=== PATIENT | female | born 1980 | race Caucasian/White ===

== ENCOUNTER 2020-03-21 14:21 | Inpatient (IN) | payer BC ==
[2020-03-21] VITALS (7 sets, daily range): BP systolic 127–156; BP diastolic 72–87
[~2020-03-21] VITALS: Ht 180.3 cm; Wt 127.6 kg
[~2020-03-21 14:21] MED LIST: LEVO50TA5 PO; LISI10TA2 PO; ROPI0.5T PO
[2020-03-21] MEDS ORDERED: SUCCINYLCHOLINE 200 MG/10 ML VIAL. ONE (14:34)
[2020-03-21] MEDS ORDERED: DEXAMETHASONE SOD PHOS 4 MG/ML VIAL ONE (14:34)
[2020-03-21] MEDS ORDERED: PROPOFOL 10 MG/ML (20ML) VIAL. IV ONE (14:34)
[2020-03-21] MEDS ORDERED: LIDOCAINE 2% PF 5 ML VIAL. ONE (14:34)
[2020-03-21] MEDS ORDERED: ONDANSETRON PF 4 MG/2 ML VIAL. ONE (14:34)
[2020-03-21] MEDS ORDERED: fentaNYL PF VIAL 100 MCG/2 ML VIAL ONE ×2 (14:35→15:38)
[2020-03-21] MEDS ORDERED: MIDAZOLAM HCL/PF 2 MG/2 ML VIAL. ONE (14:35)
[2020-03-21] MEDS ORDERED: ROCURONIUM 50 MG/5 ML VIAL. ONE (14:35)
[2020-03-21] MEDS ORDERED: BUPIVACAINE-EPI 0.5%-1:200000 MPF 30 ML VIAL. INJ ONE (14:45)
[2020-03-21] MEDS ORDERED: cefTRIAXone IV Push 1 GM VIAL. IVP ONE ×2 (15:11→17:30)
[2020-03-21] MEDS ORDERED: cloNIDine HCL 0.1 MG TABLET PO PRN (15:15)
[2020-03-21] MEDS ORDERED: ACETAMINOPHEN 650 MG SUPP.RECT. PR PRN (15:15)
[2020-03-21] MEDS ORDERED: guaiFENesin ORAL 200 MG/10 ML LIQUID. PO PRN (15:15)
[2020-03-21] MEDS ORDERED: ONDANSETRON PF 4 MG/2 ML VIAL. IV PRN (15:15)
[2020-03-21] MEDS ORDERED: ACETAMINOPHEN 325 MG TABLET. PO PRN (15:15)
[2020-03-21] MEDS: IV NORMAL SALINE 1000ML BAG 1,000 ML IV SCH (15:15)
[2020-03-21] MEDS ORDERED: ZOLPIDEM 5 MG TABLET. PO PRN (15:15)
[2020-03-21] MEDS ORDERED: ALBUTEROL SULFATE 2.5 MG/3 ML NEBU. NEB PRN (15:15)
[2020-03-21] MEDS ORDERED: DOCUSATE SODIUM 100 MG CAPSULE. PO PRN (15:15)
[2020-03-21] MEDS ORDERED: diphenhydrAMINE 50 MG/ML VIAL IVP PRN (15:15)
[2020-03-21] MEDS ORDERED: MORPHINE SULFATE 2 MG/ML VIAL. IV PRN ×2 (15:15→16:15)
--- NOTE | 2020-03-21 15:21 | PDOC2 ---
CONSULT Date of Consult Date of Consult DATE: 03/21/20 TIME: 15:17 Reason for Consult Reason for Consult: Appendicitis Referring Physician Referring Physician: Dr. Rogers Identification/Chief Complaint Chief Complaint RLQ abd pain Source Source: Chart review, Patient History of Present Illness Reason for Visit: 39 yo F with c/o RLQ abd pain. Awoke her from sleep at 0500 this AM. No previous episodes. Past Medical History Cardiovascular: HTN Pulmonary: No pertinent hx GI: No pertinent hx Heme/Onc: No pertinent hx Hepatobiliary: Cholelithiasis Past Surgical History Past Surgical History: Cholecystectomy, Hysterectomy, Other (breast augme ntation, wrist surgery) Family History Family History: No Significant Social History <1 pack per day ALCOHOL: rare Drugs: None Current Medications Current Medications Current Medications Propofol (Diprivan) 200 mg STK-MED ONCE IV ; Start 03/21/20 at 14:34; Stop 03/21/20 at 14:34; Status DC Lidocaine HCl (Lidocaine Pf 2% Vial) 5 ml STK-MED ONCE .ROUTE ; Start 03/21/20 at 14:34; Stop 03/21/20 at 14:34; Status DC Dexamethasone Sodium Phosphate (Decadron) 4 mg STK-MED ONCE .ROUTE ; Start 03/21/20 at 14:34; Stop 03/21/20 at 14:34; Status DC Ondansetron HCl (Zofran) 4 mg STK-MED ONCE .ROUTE ; Start 03/21/20 at 14:34; Stop 03/21/20 at 14:34; Status DC Succinylcholine Chloride (Anectine) 200 mg STK-MED ONCE .ROUTE ; Start 03/21/20 at 14:34; Stop 03/21/20 at 14:34; Status DC Rocuronium [place] (Zemuron) 50 mg STK-MED ONCE .ROUTE ; Start 03/21/20 at 1 4:35; Stop 03/21/20 at 14:35; Status DC Midazolam HCl (Versed) 2 mg STK-MED ONCE .ROUTE ; Start 03/21/20 at 14:35; Stop 03/21/20 at 14:36; Status DC Fentanyl Citrate (Fentanyl 2ml Vial) 100 mcg STK-MED ONCE .ROUTE ; Start 03/21/20 at 14:35; Stop 03/21/20 at 14:36; Status DC Bupivacaine HCl/ Epinephrine Bitart (Sensorcain-Epi 0.5%-1:495368 Mpf) 30 ml 1X ONCE INJ ; Start 03/21/20 at 14:45; Stop 03/21/20 at 14:46; Status DC Ceftriaxone Sodium (Rocephin) 1 gm STK-MED ONCE IVP ; Start 03/21/20 at 15:11; Stop 03/21/20 at 15:12; Status DC Morphine Sulfate (Morphine Sulfate) 2 mg PRN Q2HR PRN IV PAIN; Start 03/21/20 at 15:15 Sodium Chloride 1,000 ml @ 100 mls/hr Q10H IV ; Start 03/21/20 at 15:15; Status UNV Ondansetron HCl (Zofran) 4 mg PRN Q4HRS PRN IV NAUSEA/VOMITING; Start 03/21/20 at 15:15; Status UNV Zolpidem Tartrate (Ambien) 5 mg PRN QHS PRN PO INSOMNIA; Start 03/21/20 at 15:15; Status UNV Acetaminophen (Tylenol) 650 mg PRN Q4HRS PRN PO TEMP OVER 100.4F OR MILD PAIN; Start 03/21/20 at 15:15; Status UNV Acetaminophen (Tylenol Supp) 650 mg PRN Q4HRS PRN GA TEMP OVER 100.4F OR MILD PAIN; Start 03/21/20 at 15:15; Status UNV Clonidine HCl (Catapres) 0.1 mg PRN Q6HRS PRN PO SBP>160 OR DBP>90; Start 03/21/20 at 15:15; Status UNV Diphenhydramine HCl (Benadryl) 25 mg PRN Q4HRS PRN IVP ITCHING; Start 03/21/20 at 15:15; Status UNV Docusate Sodium (Colace) 100 mg PRN BID PRN PO HARD STOOLS; Start 03/21/20 at 15:15; Status UNV Albuterol Sulfate (Ventolin Neb Soln) 2.5 mg PRN Q4HRS PRN NEB SHORTNESS OF BREATH; Start 03/21/20 at 15:15; Status UNV Guaifenesin (Robitussin) 200 mg PRN Q4HRS PRN PO COUGH; Start 03/21/20 at 15:15; Status UNV Lorazepam (Ativan Inj) 1 mg PRN Q4HRS PRN IV ANXIETY / AGITATION; Start 03/21/20 at 15:15; Status UNV Levothyroxine Sodium (Synthroid) 50 mcg DAILY PO ; Start 03/22/20 at 09:00; Status UNV Lisinopril (Prinivil) 10 mg DAILY PO ; Start 03/22/20 at 09:00; Status UNV Non-Formulary Medication (Ropinirole Hcl (Requip)) 1 tab PRN QHS PO ; Start 03/21/20 at 15:15; Status UNV Active Scripts Active Reported Lisinopril 10 Mg Tablet 1 Tab PO DAILY Levothyroxine Sodium 50 Mcg Tablet 1 Tab PO DAILY Requip (Ropinirole Hcl) 0.5 Mg Tablet 1 Tab PO PRN QHS Allergies Allergies: Coded Allergies: Penicillins (Verified Allergy, Severe, Anaphylaxis, 03/31/14) she stops breathing ROS Gastrointestinal: Yes Abdominal Pain Physical Exam General: Alert, Oriented X3, Cooperative, moderate distress HEENT: Atraumatic Lungs: Normal air movement Abdomen: Soft, Other (TTP RLQ, obese) Extremities: No clubbing, No cyanosis Skin: No rashes, No breakdown Neuro: Normal speech, Sensation intact Psych/Mental Status: Mental status NL, Mood NL Vitals VITALS Vital Signs Date Time Temp Pulse Resp B/P (MAP) Pulse Ox O2 Delivery O2 Flow Rate FiO2 03/21/20 14:20 98.5 70 20 156/72 (100) 99 Room Air 98.5 Labs Labs WBC 17 at [facility] Images CT c/w appendicitis Assessment/Plan Assessment/Plan Appendicitis TO OR for laparoscopic versus open appendectomy. R/R/B/A d/w pt. Risks, including, but not limited to: bleeding, infection, damage to surrounding structures, risk of anesthesia, risk of open. She appears to understand, her questions are answered and she elects to proceed. Thanks for consult! HECTOR SOLIS MD Mar 21, 2020 15:21
[2020-03-21] MEDS ORDERED: rOPINIRole 0.25 MG TABLET. PO PRN (15:30)
[2020-03-21] MEDS ORDERED: FAMOTIDINE 20 MG/2 ML VIAL ONE (15:38)
[2020-03-21] MEDS ORDERED: GLYCOPYRROLATE 1 MG/5 ML VIAL. ONE (15:44)
[2020-03-21] MEDS ORDERED: NEOSTIGMINE METHYLSULFATE 5 MG/5 ML SYRINGE. ONE (15:44)
[2020-03-21] MEDS ORDERED: SEVOFLURANE 31 TO 60 MINUTES. IH ONE (16:04)
--- NOTE | 2020-03-21 16:12 | PDOC4 ---
OPERATIVE NOTE Date: Date: Mar 21, 2020 Pre-Op Diagnosis: Appendicitis Post-Op Diagnosis: same Procedure Performed: laparoscopic appendectomy Surgeon: Johnathan Solis Anesthesia Type: GETA plus local Blood Loss: 50 Specimans Obtained: appendix Findings: appendicitis, no perforation, morbid obesity, left ovarian cyst, aspirated serous fluid Complications: none Operative Note: After obtaining informed consent, patient was taken to OR, induced under GETA and prepped in the usual fashion. 5 mm port placed LLQ and suprapubic, 12 port placed umbilical, all under laparoscopic guidance. Abdominal cavity was explor ed and noted as above. Appendix was grasped. Defect was created in mesoappendix at level of cecum. General load WARREN taken across base of appendix. Vascular load taken across mesoappendix. Appendix placed in bag, delivered and sent to pathology for evaluation. Additional hemostasis obtained on staple lines with clips. Appendix placed in bag, delivered and sent to pathology. Copious irrigation. No evidence of bleeding or other pathology at time of closure. Ports removed without bleeding. Fascia repaired with 0 vicryl. Skin repaired with 4 0 monocryl. Dressing placed. Patient tolerated procedure well and sent to PACU in stable condition. All counts correct. Wound class is 4. HECTOR SOLIS MD Mar 21, 2020 16:12
[2020-03-21] MEDS ORDERED: 0.9 % SODIUM CHLORIDE 10 ML DISP.SYRIN. IV PRN (16:15)
[2020-03-21] MEDS ORDERED: IV NORMAL SALINE 1000ML BAG 1,000 ML IV SCH (16:15)
[2020-03-21] MEDS ORDERED: ONDANSETRON PF 4 MG/2 ML VIAL. IVP PRN (16:15)
[2020-03-21] MEDS ORDERED: NALOXONE 0.4 MG/ML VIAL. IV PRN (16:15)
--- NOTE | 2020-03-21 16:30 | PDOC1 ---
History and Physical Date of Admission Date of Admission 03/21/2020 Identification/Chief Complaint Chief Complaint hector anglin Source Source: Chart review, Patient History of Present Illness History of Present Illness Patient is a 39 year old female with no significant past medical history who was in her usual state of health until this morning when she experienced lower quadrant pain she describes as sharp, intermittent with no radiation to the back or the groin, no urinary symptoms were reported, she was seen in her local ER where she was diagnosed with acute appendicitis, patient was transported to our institution for definitive surgical treatment. Patient is seen post op, no complaints at this time, all concerns addressed to the best of my abilities. Past Medical History Cardiovascular: HTN Pulmonary: No pertinent hx GI: No pertinent hx Heme/Onc: No pertinent hx Hepatobiliary: Cholelithiasis Past Surgical History Past Surgical History: Cholecystectomy, Hysterectomy, Other (breast augmentation, wrist surgery) Family History Family History: No Significant Social History Smoke: <1 pack per day ALCOHOL: rare Drugs: None Current Medications Current Medications Current Medications Medications (Trade) Dose Ordered Sig/Muna Start Time Stop Time Status Last Admin Dose Admin Acetaminophen (Tylenol Supp) 650 mg PRN Q4HRS PRN 03/21/20 15:15 Acetaminophen (Tylenol) 650 mg PRN Q4HRS PRN 03/21/20 15:15 Acetaminophen/ Hydrocodone Bitart (Lortab 5/325) 1 tab PRN Q4HRS PRN 03/21/20 16:15 Albuterol Sulfate (Ventolin Neb Soln) 2.5 mg PRN Q4HRS PRN 03/21/20 15:15 Bupivacaine HCl/ Epinephrine Bitart (Sensorcain-Epi 0.5%-1:933487 Mpf) 30 ml 1X ONCE 03/21/20 14:45 03/21/20 14:46 DC 03/21/20 15:41 10 ML Ceftriaxone Sodium (Rocephin) 1 gm STK-MED ONCE 03/21/20 15:11 03/21/20 15:12 DC Clonidine HCl (Catapres) 0.1 mg PRN Q6HRS PRN 03/21/20 15:15 Dexamethasone Sodium Phosphate (Decadron) 4 mg STK-MED ONCE 03/21/20 14:34 03/21/20 14:34 DC Diphenhydramine HCl (Benadryl) 25 mg PRN Q4HRS PRN 03/21/20 15:15 Docusate Sodium (Colace) 100 mg BID 03/21/20 21:00 Famotidine (Pepcid Vial) 20 mg STK-MED ONCE 03/21/20 15:38 03/21/20 15:38 DC Fentanyl Citrate (Fentanyl 2ml Vial) 100 mcg STK-MED ONCE 03/21/20 15:38 03/21/20 15:38 DC Glycopyrrolate (Robinul) 1 mg STK-MED ONCE 03/21/20 15:44 03/21/20 15:44 DC Guaifenesin (Robitussin) 200 mg PRN Q4HRS PRN 03/21/20 15:15 Levothyroxine Sodium (Synthroid) 50 mcg DAILY06 03/22/20 06:00 Lidocaine HCl (Lidocaine Pf 2% Vial) 5 ml STK-MED ONCE 03/21/20 14:34 03/21/20 14:34 DC Lisinopril (Prinivil) 10 mg DAILY 03/22/20 09:00 Lorazepam (Ativan Inj) 1 mg PRN Q4HRS PRN 03/21/20 15:15 Midazolam HCl (Versed) 2 mg STK-MED ONCE 03/21/20 14:35 03/21/20 14:36 DC Morphine Sulfate (Morphine Sulfate) 1 mg PRN Q1HR PRN 03/21/20 16:15 Naloxone HCl (Narcan) 0.4 mg PRN Q2MIN PRN 03/21/20 16:15 Neostigmine [place] (Neostigmine Methylsulfate) 5 mg STK-MED ONCE 03/21/20 15:44 03/21/20 15:44 DC Ondansetron HCl (Zofran) 4 mg PRN Q6HRS PRN 03/21/20 16:15 Propofol (Diprivan) 200 mg STK-MED ONCE 03/21/20 14:34 03/21/20 14:34 DC Ringer's Solution 1,000 ml @ 100 mls/hr Q10H 03/21/20 16:15 Rocuronium [place] (Zemuron) 50 mg STK-MED ONCE 03/21/20 14:35 03/21/20 14:35 DC Ropinirole HCl (Requip) 0.5 mg PRN QHS PRN 03/21/20 15:30 Sevoflurane (Ultane) 30 ml STK-MED ONCE 03/21/20 16:04 03/21/20 16:04 DC Sodium Chloride 1,000 ml @ 25 mls/hr Q24H 03/21/20 16:15 Sodium Chloride (Normal Saline Flush) 3 ml QSHIFT PRN 03/21/20 16:15 Succinylcholine Chloride (Anectine) 200 mg STK-MED ONCE 03/21/20 14:34 03/21/20 14:34 DC Zolpidem Tartrate (Ambien) 5 mg PRN QHS PRN 03/21/20 15:15 Allergies Allergies Allergies Coded Allergies Type Severity Reaction Last Updated Verified Penicillins Allergy Severe Anaphylaxis 03/31/14 Yes ROS Review of System CONSTITUTIONAL: No fever or chills EYES: No recent changes SKIN: No rash or itching CARDIOVASCULAR: No chest pain, syncope, palpitations, or edema RESPIRATORY: No SOB or cough GASTROINTESTINAL: No nausea, vomiting or abdominal pain NEUROLOGICAL: No headaches or weakness ENDOCRINE: No cold or heat intolerance GENITOURINARY: No urgency or frequency of urination MUSCULOSKELETAL: No back pain or joint pain LYMPHATICS: No enlarged lymph nodes PSYCHIATRIC: No anxiety or depression Physical Exam Physical Exam GEN.: No apparent distress. Alert and oriented. HEENT: Head is normocephalic, atraumatic NECK: Supple. LUNGS: Clear to auscultation. HEART: RRR, S1, S2 present. Peripheral pulses intact ABDOMEN: Soft, nontender. Positive bowel sounds. EXTREMITIES: Without any cyanosis. NEUROLOGIC: Normal speech, normal tone PSYCHIATRIC: Normal affect, normal mood. SKIN: No ulcerations Vitals Vitals Vital Signs Date Time Temp Pulse Resp B/P (MAP) Pulse Ox O2 Delivery O2 Flow Rate FiO2 03/21/20 16:11 97.5 93 16 146/67 96 Room Air 8 97.5 VTE Prophylaxis Ordered VTE Prophylaxis Devices: Yes VTE Pharmacological Prophylaxi: No Assessment/Plan Assessment/Plan acute appendicitis history of acquired hypothyroidism Plan: resume home medications. pain management follow recommendations from account consultant post op DVT prophylaxis: SCD Justifications for Admission Other Justification acute appendicitis SATYA HADDAD MD Mar 21, 2020 16:30
[2020-03-21] MEDS: IV RINGERS,LACTATED 1000ML 1,000 ML IV SCH (17:18)
[2020-03-21] MEDS: DOCUSATE SODIUM 100 MG CAPSULE. PO SCH (21:11)
--- NOTE | 2020-03-21 21:40 | NUR ---
Patient ambulated around square assisted per this racebook writer, is instructed on using legs to sit and stand, IS Q 2 hrs when awake, (she reports that she has used in the past), instructed on splinting her abdomen with hands and pillow when available. monitoring
[2020-03-21] MEDS: HYDROcodone/APAP 5/325MG 1 TAB TABLET PO PRN (22:33)
[2020-03-22 03:00] VITALS: BP 124/72
[2020-03-22] MEDS: IV RINGERS,LACTATED 1000ML 1,000 ML IV SCH ×2 (03:56→12:15)
[2020-03-22] MEDS: HYDROcodone/APAP 5/325MG 1 TAB TABLET PO PRN ×2 (05:51→11:01)
[2020-03-22] MEDS ORDERED: LEVOTHYROXINE 50 MCG TABLET PO SCH (06:00)
[2020-03-22 07:00] VITALS: BP 145/76
[2020-03-22 08:29] LABS: BASO % 0 % (0-3); EOS # 0.1 x10^3/uL (0.0-0.7); EOS % 1 % (0-3); HEMATOCRIT 37.8 % (36.0-47.0); HEMOGLOBIN 12.5 g/dL (12.0-15.5); LYMPH % 18 % (24-48); MEAN CORPUSCULAR HEMOGLOBIN 28 pg (25-35); MEAN CORPUSCULAR HGB CONC 33 g/dL (31-37); MEAN CORPUSCULAR VOLUME 86 fL (79-100); MONO # 0.6 x10^3/uL (0.0-1.1); MONO % 6 % (0-9); NEUT # 8.5 x10^3/uL (1.8-7.7); NEUT % 76 % (31-73); PLATELET COUNT 295 x10^3/uL (140-400); RED BLOOD COUNT 4.41 x10^6/uL (3.50-5.40); RED CELL DISTRIBUTION WIDTH 14.3 % (11.5-14.5); WHITE BLOOD COUNT 11.2 x10^3/uL (4.0-11.0)
[2020-03-22 08:52] LABS: CALCIUM 8.3 mg/dL (8.5-10.1); CREATININE 0.7 mg/dL (0.6-1.0); GFR 93.2; POTASSIUM 4.4 mmol/L (3.5-5.1)
[2020-03-22] MEDS ORDERED: LISINOPRIL 10 MG TABLET PO SCH (09:00)
[2020-03-22] MEDS: DOCUSATE SODIUM 100 MG CAPSULE. PO SCH (09:22)
[2020-03-22] MEDS: IV NORMAL SALINE 1000ML BAG 1,000 ML IV SCH ×2 (09:23→11:07)
[2020-03-22] MEDS ORDERED: HYDR-2761 PO (09:31)
--- NOTE | 2020-03-22 09:35 | PDOC ---
SURGICAL PROGRESS NOTE DATE: 03/22/20 TIME: 09:34 Subjective tolerating diet pain managed urinating Vital Signs Vital Signs Date Time Temp Pulse Resp B/P (MAP) Pulse Ox O2 Delivery O2 Flow Rate FiO2 03/22/20 09:23 71 145/76 03/22/20 07:00 97.9 17 96 Room Air 97.9 03/21/20 16:26 8 I&O Intake and Output 03/22/20 07:00 Intake Total 2450 ml Output Total 2160 ml Balance 290 ml Intake Oral 300 ml IV Total 2150 ml Output Urine Total 2150 ml Estimated Blood Loss 10 ml # Voids 3 General: Alert, Oriented X3, Cooperative Abdomen: Soft, Other (ND, lap sites c/d/i) Labs Laboratory Tests Test 03/22/20 07:52 White Blood Count 11.2 x10^3/uL (4.0-11.0) Red Blood Count 4.41 x10^6/uL (3.50-5.40) Hemoglobin 12.5 g/dL (12.0-15.5) Hematocrit 37.8 % (36.0-47.0) Mean Corpuscular Volume 86 fL (79-100) Mean Corpuscular Hemoglobin 28 pg (25-35) Mean Corpuscular Hemoglobin Concent 33 g/dL (31-37) Red Cell Distribution Width 14.3 % (11.5-14.5) Platelet Count 295 x10^3/uL (140-400) Neutrophils (%) (Auto) 76 % (31-73) Lymphocytes (%) (Auto) 18 % (24-48) Monocytes (%) (Auto) 6 % (0-9) Eosinophils (%) (Auto) 1 % (0-3) Basophils (%) (Auto) 0 % (0-3) Neutrophils # (Auto) 8.5 x10^3/uL (1.8-7.7) Lymphocytes # (Auto) 2.0 x10^3/uL (1.0-4.8) Monocytes # (Auto) 0.6 x10^3/uL (0.0-1.1) Eosinophils # (Auto) 0.1 x10^3/uL (0.0-0.7) Basophils # (Auto) 0.0 x10^3/uL (0.0-0.2) Sodium Level 141 mmol/L (136-145) Potassium Level 4.4 mmol/L (3.5-5.1) Chloride Level 106 mmol/L (98-107) Carbon Dioxide Level 26 mmol/L (21-32) Anion Gap 9 (6-14) Blood Urea Nitrogen 5 mg/dL (7-20) Creatinine 0.7 mg/dL (0.6-1.0) Estimated GFR (Cockcroft-Gault) 93.2 Glucose Level 96 mg/dL (70-99) Calcium Level 8.3 mg/dL (8.5-10.1) Laboratory Tests Test 03/22/20 07:52 White Blood Count 11.2 x10^3/uL (4.0-11.0) Red Blood Count 4.41 x10^6/uL (3.50-5.40) Hemoglobin 12.5 g/dL (12.0-15.5) Hematocrit 37.8 % (36.0-47.0) Mean Corpuscular Volume 86 fL (79-100) Mean Corpuscular Hemoglobin 28 pg (25-35) Mean Corpuscular Hemoglobin Concent 33 g/dL (31-37) Red Cell Distribution Width 14.3 % (11.5-14.5) Platelet Count 295 x10^3/uL (140-400) Neutrophils (%) (Auto) 76 % (31-73) Lymphocytes (%) (Auto) 18 % (24-48) Monocytes (%) (Auto) 6 % (0-9) Eosinophils (%) (Auto) 1 % (0-3) Basophils (%) (Auto) 0 % (0-3) Neutrophils # (Auto) 8.5 x10^3/uL (1.8-7.7) Lymphocytes # (Auto) 2.0 x10^3/uL (1.0-4.8) Monocytes # (Auto) 0.6 x10^3/uL (0.0-1.1) Eosinophils # (Auto) 0.1 x10^3/uL (0.0-0.7) Basophils # (Auto) 0.0 x10^3/uL (0.0-0.2) Sodium Level 141 mmol/L (136-145) Potassium Level 4.4 mmol/L (3.5-5.1) Chloride Level 106 mmol/L (98-107) Carbon Dioxide Level 26 mmol/L (21-32) Anion Gap 9 (6-14) Blood Urea Nitrogen 5 mg/dL (7-20) Creatinine 0.7 mg/dL (0.6-1.0) Estimated GFR (Cockcroft-Gault) 93.2 Glucose Level 96 mg/dL (70-99) Calcium Level 8.3 mg/dL (8.5-10.1) Problem List s/p appy ok to nv home FU 2 weeks Justicifation of Admission Dx: Justifications for Admission: Justification of Admission Dx: Yes Comments: appendicitis JAKI NARANJO JIG MAKER Mar 22, 2020 09:35
[2020-03-22 10:32] VITALS: BP 135/85
--- NOTE | 2020-03-22 10:47 | NUR ---
SW following. Discussed with RN, pt from home, room air, GI soft. Pt had surgery 03/21. RN advised no SW needs, and anticipates possible discharge home with self care today. SW will continue to follow.
--- NOTE | 2020-03-22 12:29 | DISCH ---
DISCHARGE INSTRUCTIONS Condition on Discharge Condition on Discharge: Stable Activity After Discharge Activity Instructions for Disc: Activity as tolerated, Avoid exertion Lifting Instructions after Dis: No heavy lifting, No pulling or pushing, Do not lift >10 pounds Driving Instructions after Dis: No driving for 2 weeks Weight Bearing Status after Di: No restrictions Diet after Discharge Diet after Discharge: Regular Diet Texture: Regular Wound Incision Care Wound/Incision Care: May get incision wet Checks after Discharge DC Comment: CBC, CMP within 2 weeks of discharge Follow-Up Follow up with: PCP within 2 weeks of discharge Follow Up With: Surgery as scheduled for postoperative wound check Treatment/Equipment after DC Adaptive Equipment Issued: None GEMMA RODRIGUEZ MD Mar 22, 2020 12:29
--- NOTE | 2020-03-22 14:30 | NUR ---
Discharge Note: Patient was discharged home with self care. Patients IV's were discontinued without any complications per KENYATTA. Patient family at the bedside at the time of discharge education. Patient was given discharge summary/instructions, follow-ups, and educational material. Patients prescriptions were sent to patients preferred pharmacy. Patient did not have any further questions or concerns. Patient was taken down to the main entrance via wheelchair with all personal belongings accompanied by KENYATTA Orellana, where her son was waiting for her to take her home.
--- NOTE | 2020-03-22 18:19 | PDOC3 ---
[facility]-Discharge Summary Date of Admission: Date of Admission: Mar 21, 2020 Date of Discharge: Date of Discharge: Mar 22, 2020 Discharge Diagnosis: Discharge Diagnosis: Acute appendicitits Hospital Course: Hospital Course: 39 year old female with no significant past medical history who was in her usual state of health until this morning when she experienced lower quadrant pain she describes as sharp, intermittent with no radiation to the back or the groin, no urinary symptoms were reported, she was seen in her local ER where she was diagnosed with acute appendicitis, patient was transported to our institution f or definitive surgical treatment. Taken to OR for laparoscopic appendectomy. Tolerated procedure well without any postoperative complications. Ambulating, pain was well controlled, and tolerating diet. The rest of his hospital course was uneventful. Disposition: Disposition/Orders: D/C to Home Activity: Activity: Resume previous activity Diet: Diet: Regular Medications: Home Meds Active Scripts Hydrocodone Bit/Acetaminophen (HYDROCODONE-APAP 5-325 ) 1 Tab Tablet, 1 TAB PO PRN Q4HRS PRN for MILD PAIN 1-3, #30 TAB 0 Refills Prov:JAKI NARANJO BAR MANAGER 03/22/20 Reported Medications Lisinopril (LISINOPRIL) 10 Mg Tablet, 1 TAB PO DAILY, #30 TAB 5 Refills 03/31/14 Levothyroxine Sodium (LEVOTHYROXINE SODIUM) 50 Mcg Tablet, 1 TAB PO DAILY, #30 TAB 5 Refills 03/31/14 Ropinirole Hcl (REQUIP) 0.5 Mg Tablet, 1 TAB PO PRN QHS, #30 TAB 1 Refill 03/31/14 Scheduled Levothyroxine Sodium (Levothyroxine Sodium), 1 TAB PO DAILY, (Reported) Lisinopril (Lisinopril), 1 TAB PO DAILY, (Reported) Ropinirole Hcl (Requip), 1 TAB PO PRN QHS, (Reported) Scheduled PRN Hydrocodone Bit/Acetaminophen (Hydrocodone-Apap 5-325 ), 1 TAB PO PRN Q4HRS PRN for MILD PAIN 1-3 Total Time: Total Time: Total time spent was 25 minutes in preparing scripts, discharge planning with SW and RN, and preparing this discharge summary. Patient seen and examined on day of discharge. Justicifation of Admission Dx: Justifications for Admission: Justification of Admission Dx: Yes GEMMA RODRIGUEZ MD Mar 22, 2020 18:19
--- NOTE | 2020-03-24 13:09 | PATHOLOGY ---
[facility] Accession Number: [id number] . 01 Material submitted: . appendix - APPENDIX . 01 Clinical history: . ACUTE APPENDICITIS . 02 Diagnosis: Appendix, laparoscopic appendectomy: - Acute suppurative appendicitis with serosal exudate. (JPM:clara; 03/24/2020) S 03/24/2020 0857 Local . 02 Comment: There is no evidence of rupture. (JPM:clara; 03/24/2020) . 02 Electronically signed: . Dionisio Mckeon MD, Pathologist NPI- [id number] . 01 Gross description: . The specimen is received in formalin, labeled "Pasquale, Olga, appendix" and consists of an appendix measuring 8.8 cm in length and up to 1.5 cm in diameter with mesoappendix measuring 2.6 cm thick. The serosa is ragged cottrell with thin to thick adhesions. The margin is closed with a line of maverick and inked black. Sectioning reveals a markedly dilated lumen containing frothy brown material. Weaving Loom Operator sections are submitted in A1-A2. (SDY; 03/23/2020) SYU/SYU 03/23/2020 1055 Local . 02 Pathologist provided ICD-10: K35.80 . 02 CPT . 639693 Specimen Comment: A courtesy copy of this report has been sent to [phone] Specimen Comment: [id number], Specimen Comment: Report sent to ,DR HADDAD / DR DANIEL Performed at: [address], [place], [place] [id number] MD Cody Sanderson MD Phone: [phone] Performed at: [address] [facility] [address] [place], [place] [id number] MD Dionisio Mckeon MD Phone: [phone]
== END 2020-03-22 14:30 | disposition home or self-care (01) | DRG 343 ==
LOC: 5 NORTH 14:21
PROVIDERS: ADMIT Internal Medicine; ATTEND Internal Medicine
PROC: 0DTJ4ZZ Resection of Appendix, Percutaneous Endoscopic Approach (ICD-10-PCS; principal; 2020-03-21 14:36)
DX: K35.80 Unspecified acute appendicitis (principal); Z90.710 Acquired absence of both cervix and uterus; I10 Essential (primary) hypertension; F17.210 Nicotine dependence, cigarettes, uncomplicated; E03.9 Hypothyroidism, unspecified; Z79.899 Other long term (current) drug therapy; Z88.0 Allergy status to penicillin
CPT/HCPCS: 36415; 80048; 85025; J0330; J0696; J1100; J2250; J2270; J2405; J2704; J2710; J3010; J3490; J7120; G0378